=== PATIENT | female | born 1995 | race African-American/Black ===

== ENCOUNTER 2020-04-19 12:06 | Emergency (ER) | payer SELFPAY ==
[2016-05-10 14:52] VITALS: BP 105/56
[~2020-04-19] VITALS: Ht 162.6 cm; Wt 55.4 kg
[~2020-04-19 12:06] MED LIST: HYDR-3164 PO; LABE100T5 PO
[2020-04-19] MEDS ORDERED: FLUORESCEIN OPHTH TEST STRIP. ONE (12:17)
[2020-04-19] MEDS ORDERED: TETRACAINE 0.5% OPHTH SOLUTION 4ML BOTTLE. ONE (12:17)
[2020-04-19] MEDS ORDERED: FLUORESCEIN OPHTH TEST STRIP. OD ONE (12:45)
[2020-04-19] MEDS ORDERED: TETRACAINE 0.5% OPHTH SOLUTION 4ML BOTTLE. OD ONE (12:45)
[2020-04-19] MEDS ORDERED: ERYT1OIN6 OD (13:17)
--- NOTE | 2020-04-19 13:17 | PHYS DOC ---
Past Medical History Past Medical History: Hypertension (ELADIA MCCALLUM APRN) Past Surgical History: No Surgical History (ELADIA MCCALLUM APRN) Smoking Status: Current Some Day Smoker Alcohol Use: Occasionally Drug Use: None (ELADIA MCCALLUM APRN) General Adult EDM: Chief Complaint: EYE PROBLEMS HPI: HPI: Patient is a 24 year old AA who presents to the emergency department with complaints of right eye discomfort this morning. Patient reports that she wears contacts she states that she took them out last night and put them back in this morning and then while she was at work she began to have a burning sensation in her right eye and she started to have clear tears come from her right eye. She denies any vision changes, crusting of the eye, redness, warmth, or headache. She currently rates her pain a 10 out of 10 on the pain scale, she denies any alleviating factors or radiation of the pain. She states she has noticed that it hurts worse with bright light on occasion. (ELADIA MCCALLUM APRN) Review of Systems: Review of Systems: Constitutional: Denies fever or chills. [] Eyes: Denies change in visual acuity; see HPI. [] HENT: Denies nasal congestion or sore throat. [] Respiratory: Denies cough or shortness of breath. [] Integument: Denies rash. [] Neurologic: Denies headache Complete ROS is negative unless otherwise stated in the HPI. (ELADIA MCCALLUM APRN) Heart Score: Risk Factors: Risk Factors: DM, Current or recent (<one month) smoker, HTN, HLP, family history of CAD, obesity. Risk Scores: Score 0 - 3: 2.5% MACE over next 6 weeks - Discharge Home Score 4 - 6: 20.3% MACE over next 6 weeks - Admit for Clinical Observation Score 7 - 10: 72.7% MACE over next 6 weeks - Early Invasive Strategies (ELADIA MCCALLUM APRN) Current Medications: Current Medications Medications (Trade) Dose Ordered Sig/Rosario Start Time Stop Time Status Last Admin Dose Admin Fluorescein Sodium (Ful-Bee) 1 strip 1X ONCE 04/19/20 12:45 04/19/20 12:49 DC 04/19/20 12:53 1 STRIP Tetracaine HCl (Tetracaine) 1 drop 1X ONCE 04/19/20 12:45 04/19/20 12:49 DC 04/19/20 12:54 1 DROP (ELADIA MCCALLUM APRN) Allergies: Allergies: Allergies Coded Allergies Type Severity Reaction Last Updated Verified No Known Drug Allergies 01/02/15 No (ELADIA MCCALLUM APRN) Physical Exam: PE: Constitutional: Well developed, well nourished, no acute distress, non-toxic appearance. [] HENT: Normocephalic, atraumatic, bilateral external ears normal, nose normal. [] Eyes: PERRLA, EOMI, left eye conjunctiva normal, left eye no discharge.; Right eye conjunctive a injected with watery discharge, no reported sensitivity to light with exam [] Neck: Normal range of motion, no stridor. [] Cardiovascular:Heart rate regular rhythm Lungs & Thorax: Respirations even and unlabored, no retractions, no respiratory distress Skin: Warm, dry, no erythema, no rash. [] Extremities: No cyanosis, ROM intact, no edema. [] Neurologic: Alert and oriented X 3, no focal deficits noted. [] Psychologic: Affect normal, judgement normal, mood normal. [] (ELADIA MCCALLUM APRN) Current Patient Data: Vital Signs: Vital Signs Date Time Temp Pulse Resp B/P (MAP) Pulse Ox O2 Delivery O2 Flow Rate FiO2 04/19/20 12:10 97.3 99 14 119/65 (83) 99 Room Air 97.3 (ELADIA MCCALLUM APRN) EKG: EKG: [] (ELADIA MCCALLUM APRN) Radiology/Procedures: Radiology/Procedures: Using tetracaine and fluroscein the patient's eye was examined under Wood's lamp and an area of uptake was noted over the lateral portion of the right eye conjunctivae, no visible foreign body Patient's ocular symptoms have stabilized while they have been evaluated in the department and are appropriate for outpatient work up. No evidence of ruptured globe, retinal detachment, acute angle closure glaucoma, or deep space infection. Plan for 24 hour ophthalmologic follow up. [] (ELADIA MCCALLUM APRN) Course & Med Decision Making: Course & Med Decision Making Pertinent Labs and Imaging studies reviewed. (See chart for details) [] (ELADIA MCCALLUM APRN) Course & Med Decision Making I have reviewed the PA/ACETYLENE CUTTER's note and Plan of Care. I was available for consultation as needed during the patient's visit in the emergency department. I agree with the clinical impression, plans and disposition. (FOSTER PICKARD MD) Dragon Disclaimer: Dragon Disclaimer: This electronic medical record was generated, in whole or in part, using a voice recognition dictation system. (ELADIA MCCALLUM APRN) Departure Departure Impression: Primary Impression: Conjunctival abrasion Qualified Codes: S05.01XA - Injury of conjunctiva and corneal abrasion without foreign body, right eye, initial encounter Additional Impression: Conjunctivitis Qualified Codes: H10.31 - Unspecified acute conjunctivitis, right eye Disposition: HOME, SELF-CARE Condition: STABLE Referrals: NO PCP (PCP) Ingrid ESTRADA MD Patient Instructions: Conjunctivitis (Viral and Bacterial), Eye - Corneal Abrasion, [id number] Additional Instructions: Fill the prescription(s) and use as directed. Apply warm, moist washcloths to eyes needed for comfort. Recommend use of baby shampoo to wash eyelids. Do not wear your contacts for at least 2 weeks. Follow-up with your eye doctor or Dr. Estrada tomorrow for reevaluation. Return to the emergency room if your symptoms worsen. Scripts Erythromycin Base (Erythromycin) 1 Gm Oint...g. 0.5 INCH OD QID for 5 Days, #1 TUBE 0 Refills Prov: ELADIA MCCALLUM APRN 04/19/20 Justicifation of Admission Dx: Justifications for Admission: Justification of Admission Dx: N/A (ELADIA MCCALLUM APRN) ELADIA MCCALLUM APRN Apr 19, 2020 13:17 FOSTER PICKARD MD Apr 19, 2020 15:37
== END 2020-04-19 13:39 | disposition home or self-care (01) ==
LOC: ER 12:06
DX: S05.01XA Injury of conjunctiva and corneal abrasion without foreign body, right eye, initial encounter (principal); H10.31 Unspecified acute conjunctivitis, right eye; R20.8 Other disturbances of skin sensation; I10 Essential (primary) hypertension; Z87.891 Personal history of nicotine dependence; Y29.XXXA Contact with blunt object, undetermined intent, initial encounter; Y93.89 Activity, other specified; Y92.89 Other specified places as the place of occurrence of the external cause; Y99.8 Other external cause status
CPT/HCPCS: 99283